=== PATIENT | female | born 1945 | race Caucasian/White ===

== ENCOUNTER 2017-10-13 07:41 | Emergency (ER) | END 2017-10-13 10:10 | disposition home or self-care (01) ==

== ENCOUNTER 2018-04-07 04:44 | Emergency (ER) | payer MEDICARE, OTHER ==
[~2018-04-07] VITALS: Wt 94.3 kg
[~2018-04-07 04:44] MED LIST: MECL12.574 PO; METF-849 PO; ONDA4TAB14 PO; VALS320T2 PO
[2018-04-07] MEDS: METOPROLOL 5 MG INJ IV ONE ×2 (06:12→06:35)
[2018-04-07] MEDS ORDERED: ONDANSETRON 4 MG INJ IV STA (06:17)
[2018-04-07] MEDS ORDERED: DIPHENHYDRAMINE 50 MG INJ IV STA (06:17)
[2018-04-07] MEDS ORDERED: KETOROLAC 30 MG INJ IV STA (06:17)
[2018-04-07] MEDS ORDERED: METOCLOPRAMIDE 10 MG INJ IV STA (06:17)
--- NOTE | 2018-04-07 07:56 | ERD ---
ER Documentation Chief Complaint Chief Complaint Lt side facial numbness and ear pain. last known well 04/06/18 in AM +vomit HPI This is a 72-year-old female presents with a gradual onset headache, over the left side, she had a similar headache yesterday, and saw her primary care doctor, who ordered labs and advised her to follow-up. The patient presents today with a recurrent headache, To me she actually denies no numbness or weakness, she said the pain is on her left side, There are no alleviating or aggravating factors, she denies chest pain or shortness of breath, she describes the pain as sharp. She has a history of hypertension she is on valsartan ROS All systems reviewed and are negative except as per history of present illness. Medications Home Meds Reported Medications Metformin* (Glucophage*) 500 Mg Tab, 500 MG PO BID WITH MEALS, #90 TAB 10/13/17 Valsartan* (Diovan*) 320 Mg Tablet, 320 MG PO DAILY, TAB 10/13/17 Discontinued Scripts Ondansetron (Ondansetron Odt) 4 Mg Tab.rapdis, 4 MG PO Q6H PRN for NAUSEA AND/OR VOMITING, #10 TAB Prov:OLIVER PAEZ MD 10/13/17 Meclizine Hcl* (Antivert*) 12.5 Mg Tab, 12.5 MG PO Q6H PRN for DIZZINESS, #20 TAB Prov:OLIVER PAEZ MD 10/13/17 Allergies Allergies: Coded Allergies: No Known Allergies (Verified Allergy, Mild, 01/13/12) PMhx/Soc History of Surgery: Yes (CHOLECYSTECTOMY 10 YRS AGO, NATURAL X4) Anesthesia Reaction: No Hx Neurological Disorder: Yes (VERTIGO) Hx Respiratory Disorders: No Hx Cardiac Disorders: Yes (HTN) Hx Psychiatric Problems: No Hx Miscellaneous Medical Probl: Yes (DM) Hx Alcohol Use: No Hx Substance Use: No Hx Tobacco Use: No Smoking Status: Never smoker Physical Exam Vitals Vital Signs Date Temp Pulse Resp B/P (MAP) Pulse Ox O2 O2 Flow FiO2 Time Delivery Rate 04/07/18 Nasal 2 07:26 Cannula 04/07/18 70 16 174/75 100 Room Air 06:49 (108) 04/07/18 98.5 80 20 248/112 99 04:46 (157) Physical Exam Const: Asleep, easily awakened Head: Atraumatic Eyes: Normal Conjunctiva ENT: Normal External Ears, Nose and Mouth, no temporal tenderness Neck: Full range of motion. No meningismus. Resp: Clear to auscultation bilaterally Cardio: Regular rate and rhythm, no murmurs Abd: Soft, non tender, non distended. Normal bowel sounds Skin: No petechiae or rashes Back: No midline or flank tenderness Ext: No cyanosis, or edema Neur: Alert and oriented x4, cranial nerves II through XII intact, no cerebellar ataxia, no pronator drift Psych: Normal Mood and Affect Result Diagram: 04/07/18 0540 04/07/18 0540 Results 24 hrs Laboratory Tests Test 04/07/18 05:40 04/07/18 05:41 04/07/18 06:27 White Blood Count 10.5 10^3/ul Red Blood Count 4.15 10^6/ul Hemoglobin 12.5 g/dl Hematocrit 38.8 % Mean Corpuscular Volume 93.5 fl Mean Corpuscular Hemoglobin 30.1 pg Mean Corpuscular Hemoglobin Concent 32.2 g/dl Red Cell Distribution Width 12.7 % Platelet Count 192 10^3/UL Mean Platelet Volume 12.2 fl Immature Granulocytes % 0.300 % Neutrophils % 79.7 % Lymphocytes % 13.5 % Monocytes % 5.3 % Eosinophils % 0.9 % Basophils % 0.3 % Nucleated Red Blood Cells % 0.0 /100WBC Immature Granulocytes # 0.030 10^3/ul Neutrophils # 8.4 10^3/ul Lymphocytes # 1.4 10^3/ul Monocytes # 0.6 10^3/ul Eosinophils # 0.1 10^3/ul Basophils # 0.0 10^3/ul Nucleated Red Blood Cells # 0.0 10^3/ul Sodium Level 139 mmol/L Potassium Level 4.7 mmol/L Chloride Level 103 mmol/L Carbon Dioxide Level 27 mmol/L Anion Gap 9 Blood Urea Nitrogen 20 mg/dl Creatinine 0.78 mg/dl Est Glomerular Filtrat Rate mL/min mL/min Glucose Level 241 mg/dl Calcium Level 9.8 mg/dl Total Bilirubin 0.2 mg/dl Direct Bilirubin 0.00 mg/dl Indirect Bilirubin 0.2 mg/dl Aspartate Amino Transf (AST/SGOT) 22 IU/L Alanine Aminotransferase (ALT/SGPT) 14 IU/L Alkaline Phosphatase 108 IU/L Troponin I < 0.012 ng/ml Total Protein 7.9 g/dl Albumin 4.1 g/dl Globulin 3.80 g/dl Albumin/Globulin Ratio 1.07 Triglycerides Level 219 mg/dl Cholesterol Level 255 mg/dl LDL Cholesterol, Calculated 170 mg/dl HDL Cholesterol 41 mg/dl Cholesterol/HDL Ratio 6.2 RATIO Bedside Glucose 222 mg/dL Prothrombin Time 12.4 Sec Prothrombin Time Ratio 1.0 INR International Normalized Ratio 0.91 Activated Partial Thromboplast Time 30.7 Sec Hemoglobin A1c 8.4 % Current Medications Medications Dose Sig/Delroy Start Time Status Last (Trade) Ordered Route PRN Stop Time Admin Dose Reason Admin Metoprolol 5 mg ONCE ONCE 04/07/18 DC 04/07/18 Tartrate IV 05:30 04/07/18 06:35 (Lopressor) 05:31 10 mg ONCE STAT 04/07/18 DC 04/07/18 Metoclopramid IV 06:17 04/07/18 07:18 e HCl 06:19 (Reglan) Ondansetron 4 mg ONCE STAT 04/07/18 DC HCl (Zofran IV 06:17 04/07/18 Inj) 06:19 Ketorolac 15 mg ONCE STAT 04/07/18 DC 04/07/18 Tromethamine IV 06:17 04/07/18 07:19 (Toradol) 06:19 25 mg ONCE STAT 04/07/18 DC 04/07/18 Diphenhydrami IV 06:17 04/07/18 07:18 ne HCl 06:19 (Benadryl) Procedures/MDM This 72-year-old female presents for evaluation of headache. She initially presented hypertensive, she was not encephalopathic or confused, she had a CT brain given her age, which was negative for acute intracranial findings. She actually endorses no numbness at all to me, her headache was mainly localized to her left side, with no temporal tenderness. She was given a headache cocktail with significant improvement in her symptoms, at this point I do not suspect subarachnoid hemorrhage, do not suspect stroke, I do not suspect temporal arteritis, I discussed findings with the patient and her daughter, the patient will see her primary care doctor today, at this point she is stable for discharge home. At discharge she was in no acute distress and all questions were answered. EKG: Rate/Rhythm: Normal Sinus Rhythm QRS, ST, T-waves: No changes consistent w/ acute ischemia Impression: No evidence of ischemia or arrhythmia Departure Diagnosis: Primary Impression: Hypertension Hypertension type: essential hypertension Qualified Codes: I10 - Essential (primary) hypertension Additional Impression: Headache Headache type: unspecified Headache chronicity pattern: acute headache Intractability: not intractable Qualified Codes: R51 - Headache Condition: Stable CRISS NELSON MD Apr 07, 2018 07:55
[2018-04-07 08:27] VITALS: BP 173/77; PULSE 68; RESP 20
[2018-04-08] MEDS ORDERED: CLON-379 PO (22:36)
== END 2018-04-07 08:30 | disposition home or self-care (01) ==
LOC: E/R 04:44
DX: I10 Essential (primary) hypertension (principal); R51 Headache; E11.9 Type 2 diabetes mellitus without complications; Z79.84 Long term (current) use of oral hypoglycemic drugs
CPT/HCPCS: 36415; 70450; 71045; 80053; 80061; 82962; 83036; 84484; 85025; 85610; 85730; 93005; 96374; 96375; 96376; 99285; J1200; J1885; J2765

== ENCOUNTER 2018-04-08 20:44 | Emergency (ER) | payer MEDICARE, OTHER ==
[~2018-04-08] VITALS: Ht 160 cm; Wt 93.6 kg
[~2018-04-08 20:44] MED LIST changes: -MECL12.574 PO; -ONDA4TAB14 PO
[2018-04-08 20:59] VITALS: Ht 160 cm; Wt 93.6 kg
[2018-04-08] MEDS ORDERED: DIPHENHYDRAMINE 50 MG INJ IV STA (21:30)
[2018-04-08] MEDS ORDERED: METOCLOPRAMIDE 10 MG INJ IV STA (21:30)
[2018-04-08] MEDS ORDERED: hydrALAzine 20 MG INJ IV ONE (22:00)
--- NOTE | 2018-04-08 22:35 | ERD ---
ER Documentation Chief Complaint Chief Complaint L sided BARLOW, no Neuro deficit, dizzy, too HPI This is a 72-year-old female with a history of hypertension and hyperlipidemia, diabetes presents to the emergency room for evaluation of a headache and elevated blood pressure. The patient was seen here in the emergency room yesterday and was given medications in the ER and discharged home. She states that she was feeling better at home however tonight she felt her headache again and came to the ER. Triage was patient's blood pressure was greater than 230 systolic. The patient is not combining of any blurred vision or chest pain or shortness of breath at this time. She localized the pain to the left side of her head and describes as a throbbing pain not associated with any nausea or vomiting. The patient denies any numbness or tingling in the extremities and she is here with her daughter who denies any slurred speech and states the patient is at her baseline mental status ROS All systems reviewed and are negative except as per history of present illness. Medications Home Meds Reported Medications Metformin* (Glucophage*) 500 Mg Tab, 500 MG PO BID WITH MEALS, #90 TAB 10/13/17 Valsartan* (Diovan*) 320 Mg Tablet, 320 MG PO DAILY, TAB 10/13/17 Discontinued Scripts Ondansetron (Ondansetron Odt) 4 Mg Tab.rapdis, 4 MG PO Q6H PRN for NAUSEA AND/OR VOMITING, #10 TAB Prov:OLIVER PAEZ MD 10/13/17 Meclizine Hcl* (Antivert*) 12.5 Mg Tab, 12.5 MG PO Q6H PRN for DIZZINESS, #20 TAB Prov:OLIVER PAEZ MD 10/13/17 Allergies Allergies: Coded Allergies: No Known Allergies (Verified Allergy, Mild, 01/13/12) PMhx/Soc History of Surgery: Yes (CHOLECYSTECTOMY 10 YRS AGO, NATURAL X4) Anesthesia Reaction: No Hx Neurological Disorder: Yes (VERTIGO) Hx Respiratory Disorders: No Hx Cardiac Disorders: Yes (HTN) Hx Psychiatric Problems: No Hx Miscellaneous Medical Probl: Yes (DM) Hx Alcohol Use: No Hx Substance Use: No Hx Tobacco Use: No Smoking Status: Never smoker Physical Exam Vitals Vital Signs Date Temp Pulse Resp B/P (MAP) Pulse Ox O2 O2 Flow FiO2 Time Delivery Rate 04/08/18 98.4 79 18 224/98 98 20:59 (140) Physical Exam INITIAL VITAL SIGNS: Reviewed by me GENERAL: The patient is well developed and appropriate for usual state of health in no apparent distress HEENT: Pupils equal, round, and reactive to light. EOMI. There is no scleral icterus. NECK: C-spine is soft and supple, there is no meningismus. There is no cervical lymphadenopathy. LUNGS: Clear to auscultation bilaterally. There are no rales, wheezes or rhonchi. HEART: Regular rate and rhythm, no murmurs, clicks, rubs or gallops. ABDOMEN: Soft, non-tender, non-distended. There are bowel sounds in all four quadrants. No rebound or guarding. EXTREMITIES: There is no peripheral cyanosis or edema. No focal swelling or erythema. NEUROLOGICAL: The patient moves all four extremities with 5/5 strength. Cranial nerves II - XII are intact. Normal gait. Alert and oriented SKIN: There is no apparent rash or petechiae. HEME/LYMPHATIC: There is no evidence of excessive bruising or lymphedema. PSYCHIATRIC: The patient does not appear anxious or depressed. Result Diagram: 04/08/18213704/08/182137 Results 24 hrs Laboratory Tests Test 04/08/18 21:38 White Blood Count 10.4 10^3/ul Red Blood Count 4.05 10^6/ul Hemoglobin 12.0 g/dl Hematocrit 37.6 % Mean Corpuscular Volume 92.8 fl Mean Corpuscular Hemoglobin 29.6 pg Mean Corpuscular Hemoglobin Concent 31.9 g/dl Red Cell Distribution Width 12.6 % Platelet Count 208 10^3/UL Mean Platelet Volume 11.5 fl Immature Granulocytes % 0.400 % Neutrophils % 68.3 % Lymphocytes % 19.8 % Monocytes % 9.5 % Eosinophils % 1.7 % Basophils % 0.3 % Nucleated Red Blood Cells % 0.0 /100WBC Immature Granulocytes # 0.040 10^3/ul Neutrophils # 7.1 10^3/ul Lymphocytes # 2.1 10^3/ul Monocytes # 1.0 10^3/ul Eosinophils # 0.2 10^3/ul Basophils # 0.0 10^3/ul Nucleated Red Blood Cells # 0.0 10^3/ul Prothrombin Time 12.2 Sec Prothrombin Time Ratio 1.0 INR International Normalized Ratio 0.89 Activated Partial Thromboplast Time 34.8 Sec Sodium Level 139 mmol/L Potassium Level 4.2 mmol/L Chloride Level 103 mmol/L Carbon Dioxide Level 26 mmol/L Anion Gap 10 Blood Urea Nitrogen 22 mg/dl Creatinine 0.86 mg/dl Est Glomerular Filtrat Rate mL/min mL/min Glucose Level 229 mg/dl Calcium Level 9.8 mg/dl Current Medications Medications Dose Sig/Delroy Start Time Status Last (Trade) Ordered Route PRN Stop Time Admin Dose Reason Admin 10 mg ONCE STAT 04/08/18 DC 04/08/18 Metoclopramid IV 21:30 04/08/18 21:52 e HCl 21:31 (Reglan) 25 mg ONCE STAT 04/08/18 DC 04/08/18 Diphenhydrami IV 21:30 04/08/18 21:52 ne HCl 21:31 (Benadryl) Hydralazine 10 mg ONCE ONCE 04/08/18 DC 04/08/18 HCl IV 22:00 04/08/18 21:53 (Apresoline) 22:01 Procedures/MDM EKG: Rate/Rhythm: [Normal Sinus Rhythm] QRS, ST, T-waves: [No changes consistent w/ acute ischemia] Impression: [No evidence of ischemia or arrhythmia] This 72-year-old female presents to the ER for evaluation of a headache. When I evaluated this patient the patient had a GCS of 15, she had no focal neurological deficits. However her blood pressure was elevated with a systolic blood pressure greater than 230 on the monitor. She was afebrile and she was not tachycardic. She had no meningeal signs. The patient was given hydralazine and a migraine cocktail. On my reevaluation the patient's blood pressure is 174/64. She denies any headache at this time and states she is feeling much better. The patient was seen here in the emergency room yesterday and did have a CT of the brain which showed no acute intracranial pathology. I will defer CT at this time given her negative CT yesterday. The patient is likely suffering from a headache due to uncontrolled hypertension. The patient does have a scheduled appointment with her primary care physician on April 10. She will be discharged home with a prescription for clonidine to take if her blood pressure does increase with symptoms. She will be discharged home with 2 tabs of 0.1 mg. The patient does feel comfortable with our plan. I advised her that if her blood pressure would continue to be higher if she were to have any further symptoms she needs to return immediately to the emergency room for admission and she verbalized understanding. Departure Diagnosis: Primary Impression: Uncontrolled hypertension Additional Impression: Diabetes mellitus Condition: Stable AIME MATHIAS DO Apr 08, 2018 22:35
[2018-04-08] MEDS ORDERED: CLON-379 PO (22:36)
[2018-04-08 23:17] VITALS: BP 155/73; PULSE 87; RESP 22
[2018-04-11] MEDS ORDERED: LOSA100T8 PO (09:32)
== END 2018-04-08 23:19 | disposition home or self-care (01) ==
LOC: E/R 20:44
DX: I10 Essential (primary) hypertension (principal); E11.9 Type 2 diabetes mellitus without complications; Z79.84 Long term (current) use of oral hypoglycemic drugs
CPT/HCPCS: 80048; 85025; 85610; 85730; J0360; J1200; J2765; 36415; 93005; 96374; 96375

== ENCOUNTER 2018-04-09 15:58 | Inpatient (IN) | payer MEDICARE, OTHER ==
[~2018-04-09] VITALS: Ht 167.6 cm; Wt 91.1 kg
[~2018-04-09 15:58] MED LIST changes: +CLON-379 PO
[2018-04-09] MEDS ORDERED: LABETALOL HCL 20MG INJ IV ONE (20:00)
--- NOTE | 2018-04-09 21:12 | ERD ---
ER Documentation Chief Complaint Chief Complaint BIB FAMILY FOR BARLOW AND HTN. SEEN PREVIOUSLY FOR SAME HPI Patient is a 72-year-old female with hypertension, diabetes, and high cholesterol who presents with high blood pressure. She has had high blood pressure with a systolic of 240 at home today. It started 1 week ago. She saw her primary doctor on Wednesday. She has left-sided facial pain. Symptoms come and go. This is her third visit to the ER since April 07. She does take her blood pressure medications. Last night in the emergency department she was given a prescription for clonidine which she did try today. However her blood pressure has bounced back in is elevated again. She has generalized weakness and nausea but no focal weakness. Upon review of old medical records this is the patient's ninth visit to the ER since 2010. Her primary doctor is Dr. Martinez. ROS All systems reviewed and are negative except as per history of present illness. Medications Home Meds Active Scripts Clonidine Hcl* (Clonidine Hcl*) 0.1 Mg Tab, 0.1 MG PO BID, #2 TAB Prov:AIME MATHIAS DO 04/08/18 Reported Medications Metformin* (Glucophage*) 500 Mg Tab, 500 MG PO BID WITH MEALS, #90 TAB 10/13/17 Valsartan* (Diovan*) 320 Mg Tablet, 320 MG PO DAILY, TAB 10/13/17 Discontinued Scripts Ondansetron (Ondansetron Odt) 4 Mg Tab.rapdis, 4 MG PO Q6H PRN for NAUSEA AND/OR VOMITING, #10 TAB Prov:OLIVER PAEZ MD 10/13/17 Meclizine Hcl* (Antivert*) 12.5 Mg Tab, 12.5 MG PO Q6H PRN for DIZZINESS, #20 TAB Prov:OLIVER PAEZ MD 10/13/17 Allergies Allergies: Coded Allergies: No Known Allergies (Verified Allergy, Mild, 04/09/18) PMhx/Soc History of Surgery: Yes (CHOLECYSTECTOMY 10 YRS AGO, NATURAL X4) Anesthesia Reaction: No Hx Neurological Disorder: Yes (VERTIGO) Hx Respiratory Disorders: No Hx Cardiac Disorders: Yes (HTN) Hx Psychiatric Problems: No Hx Miscellaneous Medical Probl: Yes (DM) Hx Alcohol Use: No Hx Substance Use: No Hx Tobacco Use: No Smoking Status: Never smoker FmHx Family History: No diabetes Physical Exam Vitals Vital Signs Date Temp Pulse Resp B/P (MAP) Pulse Ox O2 O2 Flow FiO2 Time Delivery Rate 04/09/18 98.7 67 16 141/72 98 Room Air 20:21 (95) 04/09/18 98.7 73 16 192/80 99 16:03 (117) Physical Exam Const: No acute distress Head: Atraumatic Eyes: Normal Conjunctiva ENT: Normal External Ears, Nose and Mouth. Neck: Full range of motion. No meningismus. Resp: Clear to auscultation bilaterally Cardio: Regular rate and rhythm, no murmurs Abd: Soft, non tender, non distended. Normal bowel sounds Skin: No petechiae or rashes Back: No midline or flank tenderness Ext: No cyanosis, or edema Neur: Awake and alert, cranial nerves II through XII intact, strength is 5 out of 5 in all 4 extremities Psych: Normal Mood and Affect Result Diagram: 04/09/18202504/09/182025 Results 24 hrs Laboratory Tests Test 04/09/18 20:26 White Blood Count 9.9 10^3/ul Red Blood Count 4.45 10^6/ul Hemoglobin 13.3 g/dl Hematocrit 40.8 % Mean Corpuscular Volume 91.7 fl Mean Corpuscular Hemoglobin 29.9 pg Mean Corpuscular Hemoglobin Concent 32.6 g/dl Red Cell Distribution Width 12.7 % Platelet Count 200 10^3/UL Mean Platelet Volume 11.1 fl Immature Granulocytes % 0.200 % Neutrophils % 65.8 % Lymphocytes % 23.9 % Monocytes % 8.6 % Eosinophils % 1.1 % Basophils % 0.4 % Nucleated Red Blood Cells % 0.0 /100WBC Immature Granulocytes # 0.020 10^3/ul Neutrophils # 6.5 10^3/ul Lymphocytes # 2.4 10^3/ul Monocytes # 0.9 10^3/ul Eosinophils # 0.1 10^3/ul Basophils # 0.0 10^3/ul Nucleated Red Blood Cells # 0.0 10^3/ul Sodium Level 136 mmol/L Potassium Level 4.0 mmol/L Chloride Level 101 mmol/L Carbon Dioxide Level 23 mmol/L Anion Gap 12 Blood Urea Nitrogen 19 mg/dl Creatinine 0.84 mg/dl Est Glomerular Filtrat Rate mL/min mL/min Glucose Level 148 mg/dl Calcium Level 10.5 mg/dl Troponin I < 0.012 ng/ml Current Medications Medications Dose Sig/Delroy Start Time Status Last (Trade) Ordered Route PRN Stop Time Admin Dose Reason Admin Labetalol 20 mg ONCE ONCE 04/09/18 DC HCl IV 20:00 04/09/18 (Labetalol) 20:02 Ondansetron 4 mg ER BRIDGE 04/09/18 HCl (Zofran PRN IV 21:30 04/10/18 Inj) NAUSEA AND/OR 21:29 VOMITING 650 mg ER BRIDGE 04/09/18 Acetaminophen PRN PO MILD 21:30 04/10/18 (Tylenol PAIN(1-3)OR 21:29 Tab) ELEVATED TEMP Procedures/MDM EKG read by me: Rate/Rhythm: Regular rate and rhythm at a normal rate Intervals: Normal Impression: No evidence of ischemia or arrhythmia Patient is a 72-year-old female with hypertension and diabetes who presents with hypertensive urgency. She has had persistently elevated hypertension for the past 1 week and this is her third visit to the emergency department for hypertension over the past 3 days. I do believe that she will require admission for blood pressure control and further treatment and evaluation. I spoke with Dr. Azevedo from the panel team to admission to a telemetry bed. I doubt acute coronary syndrome or stroke. Departure Diagnosis: Primary Impression: Hypertensive urgency Additional Impression: Headache Headache type: unspecified Headache chronicity pattern: acute headache Intractability: not intractable Qualified Codes: R51 - Headache Condition: OLIVER Greer MD Apr 09, 2018 21:12
[2018-04-09] MEDS ORDERED: ONDANSETRON 4 MG INJ IV PRN (21:30)
[2018-04-09] MEDS ORDERED: ACETAMINOPHEN 325 MG TAB PO PRN ×2 (21:30→23:30)
[2018-04-09 22:15] VITALS: PULSE 77
[2018-04-09 22:51] VITALS: Ht 167.6 cm; Wt 91.1 kg
[2018-04-09 23:29] VITALS: BP 135/93; PULSE 66; RESP 17
[2018-04-09] MEDS ORDERED: HYDROCODONE/APAP (5/325) TAB PO PRN ×2 (23:30)
[2018-04-09] MEDS ORDERED: GLUCOSE GEL 15 GRAM TUBE BUCCAL PRN (23:45)
[2018-04-09] MEDS ORDERED: GLUCAGON 1 MG INJ IM PRN (23:45)
[2018-04-09] MEDS ORDERED: DEXTROSE 50% 50 ML SYRINGE IV PRN ×2 (23:45)
[2018-04-09] MEDS ORDERED: GLUCOSE GEL 15 GRAM TUBE PO PRN ×2 (23:45)
--- NOTE | 2018-04-09 23:55 | HP ---
Date/Time of Note Date/Time of Note DATE: 04/09/18 TIME: 23:55 Assessment/Plan VTE Prophylaxis Pharmacological prophylaxis: heparin Lines/Catheters IV Catheter Type (from Nrs): Saline Lock Assessment/Plan Assessment/Plan 1. Hypertensive urgency: BP better controlled -Continue home meds. Adjust antihypertensives as needed -Of note, patient had a head CT on 04/07/18, which was negative for acute findings 2. Diabetes: Continue home meds. Adjust as needed 3. Continue statin 4. GERD and gastritis with erosion: PPI Result Diagram: 04/09/18202504/09/182025 Results 24hrs Laboratory Tests Test 04/09/18 20:26 04/09/18 22:33 White Blood Count 9.9 Red Blood Count 4.45 Hemoglobin 13.3 Hematocrit 40.8 Mean Corpuscular Volume 91.7 Mean Corpuscular Hemoglobin 29.9 Mean Corpuscular Hemoglobin Concent 32.6 Red Cell Distribution Width 12.7 Platelet Count 200 Mean Platelet Volume 11.1 H Immature Granulocytes % 0.200 Neutrophils % 65.8 Lymphocytes % 23.9 Monocytes % 8.6 Eosinophils % 1.1 Basophils % 0.4 Nucleated Red Blood Cells % 0.0 Immature Granulocytes # 0.020 Neutrophils # 6.5 Lymphocytes # 2.4 Monocytes # 0.9 Eosinophils # 0.1 Basophils # 0.0 Nucleated Red Blood Cells # 0.0 Sodium Level 136 Potassium Level 4.0 Chloride Level 101 Carbon Dioxide Level 23 Anion Gap 12 Blood Urea Nitrogen 19 Creatinine 0.84 Est Glomerular Filtrat Rate mL/min Glucose Level 148 # Calcium Level 10.5 H Troponin I < 0.012 Bedside Glucose 133 HPI/ROS Admit Date/Time Admit Date/Time Apr 09, 2018 at 21:03 Hx of Present Illness This is a 72-year-old female with a history of hypertension, diabetes, dyslipidemia, GERD and gastritis with erosion who presented to ER complaining of elevated blood pressure and dizziness. He said her systolic blood pressure has been as high as 240. This is patient's third ER visit in the past 3 days, related to elevated blood pressure. She had a head CT on 04/07/18, which was negative for acute findings. She said she has been compliant with her medications. When she presented to ER, blood pressure was 192/80. Currently better co ntrolled. PMH/Family/Social Past Medical History Medications Current Medications Ondansetron HCl (Zofran Inj) 4 mg ER BRIDGE PRN IV NAUSEA AND/OR VOMITING; Start 04/09/18 at 21:30; Stop 04/10/18 at 21:29 Acetaminophen (Tylenol Tab) 650 mg ER BRIDGE PRN PO MILD PAIN(1-3)OR ELEVATED TEMP; Start 04/09/18 at 21:30; Stop 04/10/18 at 21:29 Diagnostic Test (Pha) (Accu-Chek) 1 ea 02 XX ; Start 04/10/18 at 02:00 Insulin Aspart (Novolog Insulin Pen) NOVOLOG *MILD* ALGORITHM WITH MEALS BEDTIME SC ; Start 04/10/18 at 08:00 Acetaminophen/ Hydrocodone Bitart ([place] (5/325)) 1 tab Q4H PRN PO MODERATE PAIN LEVEL 4-6; Start 04/09/18 at 23:30 Acetaminophen/ Hydrocodone Bitart ([place] (5/325)) 2 tab Q4H PRN PO PAIN LEVEL 7-10; Start 04/09/18 at 23:30 Acetaminophen (Tylenol Tab) 650 mg Q6H PRN PO MILD PAIN(1-3)OR ELEVATED TEMP; Start 04/09/18 at 23:30 Miscellaneous Information 1 ea NOTE XX ; Start 04/09/18 at 23:45 Glucose (Glutose) 15 gm Q15M PRN PO DECREASED GLUCOSE; Start 04/09/18 at 23:45 Glucose (Glutose) 22.5 gm Q15M PRN PO DECREASED GLUCOSE; Start 04/09/18 at 23:45 Dextrose (D50w Syringe) 25 ml Q15M PRN IV DECREASED GLUCOSE; Start 04/09/18 at 23:45 Dextrose (D50w Syringe) 50 ml Q15M PRN IV DECREASED GLUCOSE; Start 04/09/18 at 23:45 Glucagon (Glucagen) 1 mg Q15M PRN IM DECREASED GLUCOSE; Start 04/09/18 at 23:45 Glucose (Glutose) 15 gm Q15M PRN BUCCAL DECREASED GLUCOSE; Start 04/09/18 at 23:45 Coded Allergies: No Known Allergies (Verified Allergy, Mild, 04/09/18) Social History Smoking Status: Never smoker Exam/Review of Systems Vital Signs Vitals Vital Signs Date Temp Pulse Resp B/P (MAP) Pulse Ox O2 O2 Flow FiO2 Time Delivery Rate 04/09/18 98.1 66 17 135/93 95 23:29 (107) 04/09/18 Room Air 21:30 Exam Exam Constitutional: other (no acute distress) Head: normocephalic Respiratory: other (slight decreased at bases) Cardiovascular: regular rate and rhythm Gastrointestinal: soft Extremities: normal pulses PMH/Family/Social Past Medical History Medical History: other (see hpi) Coded Allergies: No Known Drug Allergy (Verified Allergy, Unknown, 11/21/15) Past Surgical History Past Surgical Hx: other (see hpi) Family History Significant Family History: no pertinent family hx Social History Alcohol Use: other Smoking Status: Unknown if ever smoked Drug Use: other GALDINO VAZQUEZ MD Apr 09, 2018 23:55
[2018-04-10] VITALS (12 sets, daily range): BP systolic 107–138; BP diastolic 56–81; PULSE 63–81; RESP 16–18
[2018-04-10] MEDS ORDERED: NACL 0.9% 3 ML SYG IV SCH (00:30)
[2018-04-10] MEDS ORDERED: ALBUTEROL/IPRATROPIUM (NEB) 3 ML AMP HHN PRN (00:30)
[2018-04-10] MEDS ORDERED: ONDANSETRON 4 MG INJ IV PRN (00:30)
[2018-04-10] MEDS: ACCU-CHEK XX SCH (01:59)
[2018-04-10] MEDS: INSULIN ASPART [NOVOLOG] 3 ML PEN SC SCH ×4 (07:44→20:11)
[2018-04-10] MEDS ORDERED: metFORMIN 500 MG TAB PO SCH (08:00)
[2018-04-10] MEDS: FAMOTIDINE 20 MG TAB PO SCH ×2 (08:05→20:10)
[2018-04-10] MEDS: LOSARTAN 50 MG TAB PO SCH (08:06)
--- NOTE | 2018-04-10 10:04 | CONDCODE ---
I personally scribed for GALDINO VAZQUEZ MD ([facility]) on 04/10/18 at 10:04. Electronically submitted by Roselyn Barrios ([email or web address]). GALDINO VAZQUEZ MD Apr 10, 2018 10:04
--- NOTE | 2018-04-10 11:40 | PN ---
Date/Time of Note Date/Time of Note DATE: 04/10/18 TIME: 11:38 Assessment/Plan VTE Prophylaxis Risk score (from Ns)>0 risk: 4 SCD applied (from Ns): Yes SCD contraindicated: low risk/ambulating Pharmacological prophylaxis: NA/contraindicated Pharm contraindication: low risk/ambulating Lines/Catheters [facility]from [facility] Saline Lock Assessment/Plan Hospital Course SUBJECTIVE: Lying in bed comfortably. No acute distress. OBJECTIVE: Vital signs-see below PHYSICAL EXAM: Constitutional: Well-developed, adequately built, lying in bed comfortably. Psych: nl mood/affect, no complaints Head: atraumatic, normocephalic Eyes: nl conjunctiva, nl sclera ENMT: mucosa pink and moist, nl external ears & nose Neck: non-tender, supple Respiratory: clear to auscultation, normal air movement Cardiovascular: nl pulses, regular rate and rhythm Gastrointestinal: non-tender, soft, bowel sounds active in all 4 quadrants. Musculoskeletal/extremities: nl extremities to inspection, motor strength equal bilaterally, no focal deficit. Normal pulses,no cyanosis, no edema. Neurological: Alert oriented 3,nl speech, nl strength Skin: nl turgor ASSESSMENT/PLAN: 72-year-old female with a history of hypertension, admitted for dizziness and SBP above 200s. 1. Uncontrolled hypertension. -Currently stable. Continue losartan and clonidine. 2. Type 2 diabetes. -A1c 8.4. Stable glycemic trends. Hold metformin for now and will treat with insulin in-house. 3. Hypercholesterolemia. -We will start patient on statin. 4. Obesity. -Weight reduction advised. 5. Dizziness likely secondary to hypertensive episodes. -Pending 2D echocardiogram. I will also obtain a carotid ultrasound. -Symptoms resolved as blood pressure is stabilized. DVT prophylaxis: SCDs PUD prophylaxis: Not indicated CODE STATUS: Full code Diet: Carbohydrate controlled/low-cholesterol low-fat diet. Disposition: Continue current medical management. Await for ultrasound/echo studies. Monitor blood pressure closely and discharge planning in a.m. if blood pressure remained stable. Patient was seen in collaboration with Dr. Yip. Result Diagram: 04/10/18 0528 04/10/18 0528 Results 24hrs Laboratory Tests Test 04/09/18 20:26 04/09/18 22:33 04/10/18 05:28 04/10/18 07:40 White Blood Count 9.9 9.4 Red Blood Count 4.45 4.36 Hemoglobin 13.3 13.0 Hematocrit 40.8 39.8 Mean Corpuscular Volume 91.7 91.3 Mean Corpuscular 29.9 29.8 Hemoglobin Mean Corpuscular 32.6 32.7 Hemoglobin Concent Red Cell Distribution 12.7 12.5 Width Platelet Count 200 202 Mean Platelet Volume 11.1 H 11.7 H Immature Granulocytes % 0.200 0.300 Neutrophils % 65.8 70.1 Lymphocytes % 23.9 19.0 Monocytes % 8.6 9.1 Eosinophils % 1.1 1.1 Basophils % 0.4 0.4 Nucleated Red Blood 0.0 0.0 Cells % Immature Granulocytes # 0.020 0.030 Neutrophils # 6.5 6.6 Lymphocytes # 2.4 1.8 Monocytes # 0.9 0.9 Eosinophils # 0.1 0.1 Basophils # 0.0 0.0 Nucleated Red Blood 0.0 0.0 Cells # Sodium Level 136 138 Potassium Level 4.0 4.4 Chloride Level 101 99 Carbon Dioxide Level 23 27 Anion Gap 12 12 Blood Urea Nitrogen 19 21 H Creatinine 0.84 0.83 Est Glomerular Filtrat Rate mL/min Glucose Level 148 # 187 Calcium Level 10.5 H 10.1 Troponin I < 0.012 Bedside Glucose 133 163 Hemoglobin A1c 8.4 H Total Bilirubin 0.4 Direct Bilirubin 0.00 Indirect Bilirubin 0.4 Aspartate Amino 15 Transf (AST/SGOT) Alanine 16 Aminotransferase (ALT/SG PT) Alkaline Phosphatase 90 Total Protein 7.5 Albumin 4.1 Globulin 3.40 H Albumin/Globulin Ratio 1.20 Triglycerides Level 254 H Cholesterol Level 262 H LDL Cholesterol, 171 Calculated HDL Cholesterol 40 Cholesterol/HDL Ratio 6.5 Thyroid Stimulating 3.740 Hormone (TSH) Exam/Review of Systems Vital Signs Vitals Vital Signs Date Temp Pulse Resp B/P (MAP) Pulse Ox O2 O2 Flow FiO2 Time Delivery Rate 04/10/18 76 08:00 04/10/18 97.9 16 138/62 92 07:50 (87) 04/09/18 Room Air 21:30 Intake and Output 04/09/18 04/09/18 04/10/18 1515:00 23:00 07:00 IntakeIntake Total 250 ml BalanceBalance 250 ml Medications Medications Current Medications Ondansetron HCl (Zofran Inj) 4 mg ER BRIDGE PRN IV NAUSEA AND/OR VOMITING; Start 04/09/18 at 21:30; Stop 04/10/18 at 21:29 Acetaminophen (Tylenol Tab) 650 mg ER BRIDGE PRN PO MILD PAIN(1-3)OR ELEVATED TEMP; Start 04/09/18 at 21:30; Stop 04/10/18 at 21:29 Diagnostic Test (Pha) (Accu-Chek) 1 ea 02 XX ; Start 04/10/18 at 02:00 Insulin Aspart (Novolog Insulin Pen) NOVOLOG *MILD* ALGORITHM WITH MEALS BEDTIME SC Last administered on 04/10/18at 07:44; Admin Dose 1 UNIT; Start 04/10/18 at 08:00 Acetaminophen/ Hydrocodone Bitart ([place] (5/325)) 1 tab Q4H PRN PO MODERATE PAIN LEVEL 4-6; Start 04/09/18 at 23:30 Acetaminophen/ Hydrocodone Bitart ([place] (5/325)) 2 tab Q4H PRN PO PAIN LEVEL 7-10; Start 04/09/18 at 23:30 Acetaminophen (Tylenol Tab) 650 mg Q6H PRN PO MILD PAIN(1-3)OR ELEVATED TEMP; Start 04/09/18 at 23:30 Miscellaneous Information 1 ea NOTE XX ; Start 04/09/18 at 23:45 Glucose (Glutose) 15 gm Q15M PRN PO DECREASED GLUCOSE; Start 04/09/18 at 23:45 Glucose (Glutose) 22.5 gm Q15M PRN PO DECREASED GLUCOSE; Start 04/09/18 at 23:45 Dextrose (D50w Syringe) 25 ml Q15M PRN IV DECREASED GLUCOSE; Start 04/09/18 at 23:45 Dextrose (D50w Syringe) 50 ml Q15M PRN IV DECREASED GLUCOSE; Start 04/09/18 at 23:45 Glucagon (Glucagen) 1 mg Q15M PRN IM DECREASED GLUCOSE; Start 04/09/18 at 23:45 Glucose (Glutose) 15 gm Q15M PRN BUCCAL DECREASED GLUCOSE; Start 04/09/18 at 23:45 Clonidine (Catapres) 0.1 mg BID PO Last administered on 04/10/18at 08:06; Admin Dose 0.1 MG; Start 04/10/18 at 09:00 Metformin HCl (Glucophage) 500 mg BID WITH MEALS PO Last administered on 04/10/18at 08:06; Admin Dose 500 MG; Start 04/10/18 at 08:00; Status Hold Losartan Potassium (Cozaar) 100 mg DAILY PO Last administered on 04/10/18at 08:06; Admin Dose 100 MG; Start 04/10/18 at 09:00 IV Flush (NS 3 ml) 3 ml PER PROTOCOL IV ; Start 04/10/18 at 00:30 Ondansetron HCl (Zofran Inj) 4 mg Q6H PRN IV NAUSEA AND/OR VOMITING; Start 04/10/18 at 00:30 Famotidine (Pepcid) 20 mg Q12 PO Last administered on 04/10/18at 08:05; Admin Dose 20 MG; Start 04/10/18 at 09:00 Albuterol/ Ipratropium (Duoneb) 3 ml Q2H RESP THERAPY PRN HHN SHORTNESS OF BREATH; Start 04/10/18 at 00:30 Insulin Glargine (Lantus) 14 units DAILY@0800 SC ; Start 04/20/18 at 20:00 GOLDEN RAHMAN NP Apr 10, 2018 11:40
[2018-04-10] MEDS: ATORVASTATIN 10 MG TAB PO SCH (20:10)
[2018-04-10] MEDS: INSULIN GLARGINE [LANTus] (100 UNITS/ML) SYG SC SCH (20:21)
[2018-04-11] VITALS (12 sets, daily range): BP systolic 100–126; BP diastolic 51–60; PULSE 57–70; RESP 18–20
[2018-04-11] MEDS: ACCU-CHEK XX SCH (01:59)
[2018-04-11] MEDS: LOSARTAN 50 MG TAB PO SCH (08:15)
[2018-04-11] MEDS: FAMOTIDINE 20 MG TAB PO SCH ×2 (08:16→20:05)
[2018-04-11] MEDS: INSULIN ASPART [NOVOLOG] 3 ML PEN SC SCH ×4 (08:41→20:23)
[2018-04-11] MEDS ORDERED: CLON-379 PO (09:32)
[2018-04-11] MEDS ORDERED: OMEG1CAP17 PO (09:32)
[2018-04-11] MEDS ORDERED: ATOR10TA65 PO (09:32)
[2018-04-11] MEDS ORDERED: LOSA100T15 PO (09:32)
[2018-04-11] MEDS ORDERED: ASPI-817 PO (09:35)
[2018-04-11] MEDS: FISH OIL 1,000 MG CAP PO SCH ×2 (10:13→20:05)
--- NOTE | 2018-04-11 11:11 | PDOCDIS ---
Discharge Instructions CONDITION [id number] Patient Condition: [id number] Stable HOME CARE INSTRUCTIONS: [id number] Your diet recommendation is: [id number] carbohydrate-controlled diet FOLLOW UP/APPOINTMENTS Follow-up Plan 1. Follow-up with primary care physician in 1 week-Repeat BUN/Creatinine in1 week GOLDEN RAHMAN NP Apr 11, 2018 11:11
--- NOTE | 2018-04-11 11:20 | DS ---
Date/Time of Note Date/Time of Note DATE: 04/11/18 TIME: 11:15 Discharge Summary Admission/Discharge Info Admit Date/Time Apr 09, 2018 at 21:03 Discharge Date/Time Discharge Diagnosis 1. Poorly controlled hypertension. Now stable. 2. Type 2 diabetes. 3. Hypercholesterolemia. 4. Obesity. 5. Dizziness likely secondary to hypertensive episodes. Resolved. 6. Possible DM neuropathy. Procedures 04/11/2018. Noncontrast CT head. IMPRESSION: No significant change. 1. No loss of bauman-white differentiation to suggest acute territorial infarction. Consider CTA of the head/neck or noncontrast MRI of the brain as clinically warranted. 2. No acute intracranial hemorrhage. 3. Mild to moderate chronic microvascular ischemic changes. 4. Partially empty sella turcica. Further findings as detailed above. 04/10/2018. Carotid duplex. IMPRESSION: 1. Less than 50% stenosis bilaterally in the internal carotid arteries. 2. Normal antegrade flow in the vertebral arteries bilaterally. Hospital Course 72-year-old female with a history of hypertension, admitted for dizziness and SBP above 200s. Most likely dizziness is caused by hypertensive emergency. Apparently, patient was on Diovan and clonidine at home for blood pressure management. Patient was started on losartan 100 mg daily. Patient complained of some numbness on her eye area for which she was ruled out for stroke. She did not have any vision changes. Most likely, patient has neuropathy with chronic hypertension and di abetes. At this time, neuropathy seems stable and would hold off to initiation of gabapentin unless symptoms persist for treatment w/gabapentin,this can be deferred for outpatient follow-up. Hospital stay was also noted for dizziness most likely caused by too tight control of blood pressure with clonidine. CT brain negative. Carotid ultrasound was negative for any significant stenosis. Dizziness resolved with gentle hydration. Patient was then continued on single regimen with losartan for blood pressure management. Patient was continued on insulin in-house for diabetes management and her blood pressure remained stable. She was also noted with hypercholesteremia for which statin therapy was initiated. She was counseled on weight reduction. At this time, patient is feeling back to her baseline. Vital signs and labs remained stable. 2D echocardiogram result pending which I will follow-up. No further inpatient workup indicated and patient can be discharged with outpatient follow-up. Patient is instructed to follow-up with PCP for monitoring renal function on losartan. Approximately 60 m spent on coordinating the discharge on this patient. Patient was seen in collaboration with Dr. Coppola. Home Meds Active Scripts Aspirin* (Aspirin* EC) 81 Mg Tablet.dr, 81 MG PO DAILY, #30 TAB Prov:RAHMAN,GOLDEN V. BUILDING SERVICES SUPERVISOR 04/11/18 Losartan Potassium* (Losartan Potassium*) 100 Mg Tablet, 100 MG PO DAILY, #30 TAB Prov:RAHMAN,GOLDEN V. BUILDING SERVICES SUPERVISOR 04/11/18 [place]-3 Fatty Acids/Fish Oil (Fish Oil 1,000 mg Softgel) 1 Each Capsule, 1 EACH PO BID, #60 CAP Prov:RAHMAN,GOLDEN V. BUILDING SERVICES SUPERVISOR 04/11/18 Atorvastatin (Atorvastatin) 10 Mg Tablet, 10 MG PO HS, #30 TAB Prov:RAHMAN,GOLDEN V. BUILDING SERVICES SUPERVISOR 04/11/18 Reported Medications Metformin* (Glucophage*) 500 Mg Tab, 500 MG PO BID WITH MEALS, #90 TAB 10/13/17 Discontinued Reported Medications Valsartan* (Diovan*) 320 Mg Tablet, 320 MG PO DAILY, TAB 10/13/17 Discontinued Scripts Clonidine Hcl* (Clonidine Hcl*) 0.1 Mg Tab, 0.1 MG PO BID, #2 TAB Prov:AIME MATHIAS DO 04/08/18 Ondansetron (Ondansetron Odt) 4 Mg Tab.rapdis, 4 MG PO Q6H PRN for NAUSEA AND/OR VOMITING, #10 TAB Prov:OLIVER PAEZ MD 10/13/17 Meclizine Hcl* (Antivert*) 12.5 Mg Tab, 12.5 MG PO Q6H PRN for DIZZINESS, #20 TAB Prov:OLIVER PAEZ MD 10/13/17 Follow-up Plan 1. Follow-up with primary care physician in 1 week. Primary Care Provider Not On Staff Doctor Pending Labs Laboratory Tests Test 04/10/18 12:06 04/10/18 17:17 04/10/18 20:09 04/11/18 01:59 Bedside 137 167 140 167 Glucose mg/dL (70-220) mg/dL (70-220) mg/dL (70-220) mg/dL (70-220) Test 04/11/18 05:29 04/11/18 07:38 White Blood 8.2 Count 10^3/ul (4.8-10 .8) Red Blood 4.37 Count 10^6/ul (4.20-5 .40) Hemoglobin 13.1 g/dl (12.0-16.0 ) Hematocrit 39.9 % (37.0-47.0) Mean 91.3 Corpuscular fl (82.0-101.0) Volume Mean 30.0 Corpuscular pg (29.0-33.0) Hemoglobin Mean 32.8 Corpuscular g/dl (32.0-37.0 Hemoglobin Conc ) ent Red Cell 12.6 Distribution % (11.5-14.5) Width Platelet Count 210 10^3/UL (140-41 5) Mean Platelet 11.6 Volume fl (7.4-10.4) Immature 0.400 Granulocytes % % (0.001-0.429) Neutrophils % 56.7 % (39.0-77.0) Lymphocytes % 30.3 % (15.0-51.0) Monocytes % 10.4 % (0.0-11.0) Eosinophils % 1.8 % (0.0-7.0) Basophils % 0.4 % (0.0-2.0) Nucleated Red 0.0 Blood Cells % /100WBC (0.0-0. 0) Immature 0.030 Granulocytes # 10^3/ul (0.0-0. 031) Neutrophils # 4.7 10^3/ul (1.6-7. 5) Lymphocytes # 2.5 10^3/ul (0.8-2. 9) Monocytes # 0.9 10^3/ul (0.3-0. 9) Eosinophils # 0.2 10^3/ul (0.0-0. 5) Basophils # 0.0 10^3/ul (0.0-0. 1) Nucleated Red 0.0 Blood Cells # 10^3/ul (0.0-0. 0) Sodium Level 138 mmol/L (135-144 ) Potassium 4.7 Level mmol/L (3.5-5.1 ) Chloride Level 99 mmol/L (97-110) Carbon Dioxide 26 Level mmol/L (21-31) Anion Gap 13 (5-13) Blood Urea 35 mg/dl (7-20) Nitrogen Creatinine 1.30 mg/dl (0.44-1.0 0) Est Glomerular mL/min (>60) Filtrat Rate mL/min Glucose Level 153 mg/dl (70-220) Calcium Level 10.0 mg/dl (8.4-10.2 ) Phosphorus 5.8 Level mg/dl (2.5-4.9) Magnesium 2.2 Level mg/dl (1.7-2.5) Bedside 151 Glucose mg/dL (70-220) GOLDEN RAHMAN V. BUILDING SERVICES SUPERVISOR Apr 11, 2018 11:20
[2018-04-11] MEDS ORDERED: SOD CHLORIDE 0.9% 500 ML IV ONE ×2 (12:00→14:00)
--- NOTE | 2018-04-11 12:16 | QN ---
Documentation Comment BMP just resulted with creatinine 1.30. Likely from hemodynamic secondary to too tight control of blood pressure. At this time, we will give her IV bolus and will repeat levels, if high, would hold off to discharge and will monitor renal function for another day with possible discontinuation of losartan and addition of another antihypertensive. GOLDEN RAHMAN NP Apr 11, 2018 12:16
[2018-04-11] MEDS ORDERED: CALCIUM ACETATE 667 MG CAP PO ONE (14:00)
--- NOTE | 2018-04-11 14:09 | PN ---
Date/Time of Note Date/Time of Note DATE: 04/11/18 TIME: 13:55 Assessment/Plan VTE Prophylaxis Risk score (from Ns)>0 risk: 4 SCD applied (from Ns): Yes Pharmacological prophylaxis: NA/contraindicated Pharm contraindication: low risk/ambulating Lines/Catheters [facility] Saline Lock Assessment/Plan Hospital Course SUBJECTIVE: No acute distress. OBJECTIVE: Vital signs-see below PHYSICAL EXAM: Constitutional: Well-developed, adequately built, lying in bed comfortably. Psych: nl mood/affect, no complaints Head: atraumatic, normocephalic Eyes: nl conjunctiva, nl sclera ENMT: mucosa pink and moist, nl external ears & nose Neck: non-tender, supple Respiratory: clear to auscultation, normal air movement Cardiovascular: nl pulses, regular rate and rhythm Gastrointestinal: non-tender, soft, bowel sounds active in all 4 quadrants. Musculoskeletal/extremities: nl extremities to inspection, motor strength equal bilaterally, no focal deficit. Normal pulses,no cyanosis, no edema. Neurological: Alert oriented 3,nl speech, nl strength Skin: nl turgor ASSESSMENT/PLAN: 72-year-old female with a history of hypertension, admitted for dizziness and SBP above 200s. 1. Acute kidney injury, likely hemodynamic/ARB-induced. -Discontinue losartan. -Obtain urine studies and renal ultrasound. -Give IV bolus. -Repeat renal function in a.m. 2. Uncontrolled hypertension. -Currently blood pressure with borderline low, likely too tight control. Discontinue clonidine. -Start Norvasc in AM 2. Type 2 diabetes. -A1c 8.4. Stable glycemic trends. Hold metformin for now and will treat with insulin in-house. 3. Hypercholesterolemia. - on statin. 4. Obesity. -Weight reduction advised. 5. Dizziness likely secondary to hypertensive episodes. -Carotid ultrasound, CT negative for acute events. Cardiac enzymes and EKG negative for ACS. -Pending 2D echocardiogram. 6.Mild Hyperphosphatemias,likely w/KODI -Cont.fluids -repeat level in am DVT prophylaxis: SCDs PUD prophylaxis: Not indicated CODE STATUS: Full code Diet: Carbohydrate controlled/low-cholesterol low-fat diet. Disposition: Plan was to discharge patient, however noted that patient with worsening renal function. Recommend keeping patient in-house for another night to monitor renal function. Patient was seen in collaboration with Dr. Coppola. Result Diagram: 04/11/18 0529 04/11/18 1245 Results 24hrs Laboratory Tests Test 04/10/18 17:17 04/10/18 20:09 04/11/18 01:59 04/11/18 05:29 Bedside Glucose 167 140 167 White Blood Count 8.2 Red Blood Count 4.37 Hemoglobin 13.1 Hematocrit 39.9 Mean Corpuscular Volume 91.3 Mean Corpuscular 30.0 Hemoglobin Mean Corpuscular 32.8 Hemoglobin Concent Red Cell Distribution 12.6 Width Platelet Count 210 Mean Platelet Volume 11.6 H Immature Granulocytes % 0.400 Neutrophils % 56.7 Lymphocytes % 30.3 Monocytes % 10.4 Eosinophils % 1.8 Basophils % 0.4 Nucleated Red Blood 0.0 Cells % Immature Granulocytes # 0.030 Neutrophils # 4.7 Lymphocytes # 2.5 Monocytes # 0.9 Eosinophils # 0.2 Basophils # 0.0 Nucleated Red Blood 0.0 Cells # Sodium Level 138 Potassium Level 4.7 Chloride Level 99 Carbon Dioxide Level 26 Anion Gap 13 Blood Urea Nitrogen 35 #H Creatinine 1.30 H Est Glomerular Filtrat Rate mL/min Glucose Level 153 Calcium Level 10.0 Phosphorus Level 5.8 H Magnesium Level 2.2 Test 04/11/18 07:38 04/11/18 11:42 04/11/18 12:45 Bedside Glucose 151 224 H Blood Urea Nitrogen 38 H Creatinine 1.66 H Exam/Review of Systems Vital Signs Vitals Vital Signs Date Temp Pulse Resp B/P (MAP) Pulse Ox O2 O2 Flow FiO2 Time Delivery Rate 04/11/18 70 12:50 04/11/18 97.8 18 109/56 96 Room Air 11:35 (73) Intake and Output 04/10/18 04/10/18 04/11/18 1515:00 23:00 07:00 IntakeIntake Total 1000 ml 250 ml BalanceBalance 1000 ml 250 ml Medications Medications Current Medications Diagnostic Test (Pha) (Accu-Chek) 1 ea 02 XX Last administered on 04/11/18at 01:59; Admin Dose 1 EA; Start 04/10/18 at 02:00 Insulin Aspart (Novolog Insulin Pen) NOVOLOG *MILD* ALGORITHM WITH MEALS BEDTIME SC Last administered on 04/11/18at 12:02; Admin Dose 3 UNIT; Start 04/10/18 at 08:00 Acetaminophen/ Hydrocodone Bitart ([place] (5/325)) 1 tab Q4H PRN PO MODERATE PAIN LEVEL 4-6; Start 04/09/18 at 23:30 Acetaminophen/ Hydrocodone Bitart ([place] (5/325)) 2 tab Q4H PRN PO PAIN LEVEL 7-10; Start 04/09/18 at 23:30 Acetaminophen (Tylenol Tab) 650 mg Q6H PRN PO MILD PAIN(1-3)OR ELEVATED TEMP Last administered on 04/10/18at 22:17; Admin Dose 650 MG; Start 04/09/18 at 23:30 Miscellaneous Information 1 ea NOTE XX ; Start 04/09/18 at 23:45 Glucose (Glutose) 15 gm Q15M PRN PO DECREASED GLUCOSE; Start 04/09/18 at 23:45 Glucose (Glutose) 22.5 gm Q15M PRN PO DECREASED GLUCOSE; Start 04/09/18 at 23:45 Dextrose (D50w Syringe) 25 ml Q15M PRN IV DECREASED GLUCOSE; Start 04/09/18 at 23:45 Dextrose (D50w Syringe) 50 ml Q15M PRN IV DECREASED GLUCOSE; Start 04/09/18 at 23:45 Glucagon (Glucagen) 1 mg Q15M PRN IM DECREASED GLUCOSE; Start 04/09/18 at 23:45 Glucose (Glutose) 15 gm Q15M PRN BUCCAL DECREASED GLUCOSE; Start 04/09/18 at 23:45 Metformin HCl (Glucophage) 500 mg BID WITH MEALS PO Last administered on 04/10/18at 08:06; Admin Dose 500 MG; Start 04/10/18 at 08:00; Status Hold Losartan Potassium (Cozaar) 100 mg DAILY PO Last administered on 04/11/18at 08:15; Admin Dose 100 MG; Start 04/10/18 at 09:00 IV Flush (NS 3 ml) 3 ml PER PROTOCOL IV ; Start 04/10/18 at 00:30 Ondansetron HCl (Zofran Inj) 4 mg Q6H PRN IV NAUSEA AND/OR VOMITING Last administered on 04/10/18at 22:16; Admin Dose 4 MG; Start 04/10/18 at 00:30 Famotidine (Pepcid) 20 mg Q12 PO Last administered on 04/11/18at 08:16; Admin Dose 20 MG; Start 04/10/18 at 09:00 Albuterol/ Ipratropium (Duoneb) 3 ml Q2H RESP THERAPY PRN HHN SHORTNESS OF BREATH; Start 04/10/18 at 00:30 Atorvastatin Calcium (Lipitor) 10 mg HS PO Last administered on 04/10/18at 20:10; Admin Dose 10 MG; Start 04/10/18 at 21:00 Insulin Glargine (Lantus) 14 units DAILY@2000 SC Last administered on 04/10/18at 20:21; Admin Dose 14 UNITS; Start 04/10/18 at 20:00 Fish Oil (Fish Oil) 1,000 mg BID PO Last administered on 04/11/18 10:13; Admin Dose 1,000 MG; Start 04/11/18 at 09:30 GOLDEN RAHMAN NP Apr 11, 2018 14:08
[2018-04-11] MEDS: SOD CHLORIDE 0.9% 1,000 ML IV SCH (14:17)
--- NOTE | 2018-04-11 16:04 | RADRPT ---
Echocardiogram Report Patient Name: MORENA HARRIS Gender: Female Date: 1945 Study Date: 11-Apr-2018 Aircraft Designer: Thomas Lang [facility] Location: 62 Ref. Physician: GALDINO VAZQUEZ Quality: Technically Difficult Study Procedures: Transthoracic echocardiogram with complete 2D, M-Mode, and doppler examination. Indications: Shortness of breath. 2D/M Mode Doppler Measurement Value Normal Ranges Measurement Value Normal Ranges LVIDd 2D 4.5 3.5 - 5.6 cm AV Peak Lamine 1.5 m/sec LVIDs 2D 2.3 2.1 - 4.1 cm AV Peak PG 10.0 mmHg LVPWd 2D 1.5 0.6 - 1.1 cm LVOT Peak [place] 1.1 m/sec IVSd 2D 1.4 0.6 - 1.1 cm LVOT Peak PG 4.0 mmHg AoR Diam 2D 3.0 2.0 - 3.7 cm MV E Peak L[place] 0.5 m/sec LA/Ao 2D 1 0 - 1 MV A Peak L[place] 0.8 m/sec LA Dimen 2D 3.3 2.3 - 4.0 cm MV E/A 0.7 MV Decel Time 246 msec Lat E` Lamine 0.1 m/sec Lateral E/E` 7.4 MV E/A 0.7 TR Peak Lamine 2.4 m/sec TR Peak PG 23.0 mmHg RVSP 26.0 mmHg RA Pressure 3.0 Findings Left Ventricle: Normal left ventricular systolic function. Normal left ventricular cavity size. Moderate concentric left ventricular hypertrophy. Ejection fraction is visually estimated at 55 %. Tissue Doppler/Mitral Doppler indices are consistent with impaired relaxation (Stage I diastolic dysfunction). Right Ventricle: Normal right ventricular size. Normal right ventricular systolic function. Left Atrium: The left atrium is normal in size. Right Atrium: The right atrium is normal in size. Mitral Valve: Normal appearance of the mitral valve. Mild mitral annular calcification. Trace mitral regurgitation. Aortic Valve: No significant aortic stenosis or insufficiency. Aortic cusps appear mildly calcified. Tricuspid Valve: Normal appearance of the tricuspid valve. Estimated peak PA systolic pressure 26 mmHg. There is trace tricuspid regurgitation. Pulmonic Valve: Normal pulmonic valve appearance. Pericardium: Normal pericardium with no significant pericardial effusion. Aorta: Normal aortic root. IVC: Normal size and normal respiratory collapse consistent with normal right atrial pressure. Conclusions Normal left ventricular systolic function. Normal left ventricular cavity size. Moderate concentric left ventricular hypertrophy. Ejection fraction is visually estimated at 55 %. Tissue Doppler/Mitral Doppler indices are consistent with impaired relaxation (Stage I diastolic dysfunction). Normal right ventricular size. Normal right ventricular systolic function. The left atrium is normal in size. The right atrium is normal in size. No significant valvular stenosis or regurgitation seen. Normal pericardium with no significant pericardial effusion. Electronically Signed By: Trevon Fenton 11-Apr-2018 16:03:06 -0800 Patient Name: MORENA HARRIS Study Date: 11-Apr-2018 [id number]
[2018-04-11] MEDS: ATORVASTATIN 10 MG TAB PO SCH (20:05)
[2018-04-11] MEDS: INSULIN GLARGINE [LANTus] (100 UNITS/ML) SYG SC SCH (20:24)
[2018-04-12] VITALS (8 sets, daily range): BP systolic 107–142; BP diastolic 53–65; PULSE 59–69; RESP 18–65
[2018-04-12] MEDS: ACCU-CHEK XX SCH (02:20)
[2018-04-12] MEDS: SOD CHLORIDE 0.9% 1,000 ML IV SCH ×2 (02:20→14:24)
[2018-04-12] MEDS: INSULIN ASPART [NOVOLOG] 3 ML PEN SC SCH ×2 (08:00→11:45)
[2018-04-12] MEDS: FAMOTIDINE 20 MG TAB PO SCH (08:08)
[2018-04-12] MEDS: FISH OIL 1,000 MG CAP PO SCH (08:08)
[2018-04-12] MEDS ORDERED: AMLODIPINE 5 MG TAB NGT SCH (09:00)
[2018-04-12] MEDS ORDERED: AMLODIPINE 5 MG TAB PO SCH (09:00)
[2018-04-12] MEDS ORDERED: AMLO-145 PO (09:54)
--- NOTE | 2018-04-12 10:21 | DS ---
Date/Time of Note Date/Time of Note DATE: 04/12/18 TIME: 10:15 Discharge Summary Admission/Discharge Info Admit Date/Time Apr 11, 2018 at 13:55 Discharge Date/Time Discharge Diagnosis 1. Poorly controlled hypertension. Now stable. 2. Type 2 diabetes. 3. Hypercholesterolemia. 4. Obesity. 5. Dizziness likely secondary to hypertensive episodes. Resolved. 6. 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 7. Acute kidney injury likely secondary to ARB. Resolved 8. Diastolic dysfunction Procedures 04/11/2018. Noncontrast CT head. IMPRESSION: No significant change. 1. No loss of bauman-white differentiation to suggest acute territorial infarction. Consider CTA of the head/neck or noncontrast MRI of the brain as clinically warranted. 2. No acute intracranial hemorrhage. 3. Mild to moderate chronic microvascular ischemic changes. 4. Partially empty sella turcica. Further findings as detailed above. 04/10/2018. Carotid duplex. IMPRESSION: 1. Less than 50% stenosis bilaterally in the internal carotid arteries. 2. Normal antegrade flow in the vertebral arteries bilaterally. 04/11/2018. 2D echocardiogram. Conclusions Normal left ventricular systolic function. Normal left ventricular cavity size. Moderate concentric left ventricular hypertrophy. Ejection fraction is visually estimated at 55 %. Tissue Doppler/Mitral Doppler indices are consistent with impaired relaxation (Stage I diastolic dysfunction). Normal right ventricular size. Normal right ventricular systolic function. The left atrium is normal in size. The right atrium is normal in size. No significant valvular stenosis or regurgitation seen. Normal pericardium with no significant pericardial effusion. Electronically Signed By: Trevon Fenton 11-Apr-2018 16:03:06 -0800 Patient Name: MORENA HARRIS Study Date: 11-Apr-2018 [id number] 04/11/2018. CT head IMPRESSION: No significant change. 1. No loss of bauman-white differentiation to suggest acute territorial infarction. Consider CTA of the head/neck or noncontrast MRI of the brain as clinically warranted. 2. No acute intracranial hemorrhage. 3. Mild to moderate chronic microvascular ischemic changes. 4. Partially empty sella turcica. Further findings as detailed above. RPTAT: PP .Edy Fodera, MD, MD Date Time Electronically viewed and signed by .Edy Cadena MD, on 04/11/2018 10:04 .F/ CC: GOLDEN RAHMAN NP [id number] 04/11/2007. Renal ultrasound. IMPRESSION: 1. Unremarkable renal ultrasound. No evidence of renal calculi or obstructive uropathy Hospital Course 72-year-old female with a history of hypertension,on DIOVAN and CLONIDINE for BP management as outpt, admitted for dizziness ,and SBP above 200s. Blood pressure was managed initially with losartan and as needed clonidine. However, patient was noted with acute kidney injury secondary to losartan, as such she was then changed to amlodipine with blood pressure control. Kidney function stabilized. Hospital stay was noted for seeing lines with some vision changes for which she was ruled out for stroke. Most likely, patient may have diabetic/hypertensive retinopathy for which outpatient ophthalmology referral w as recommended. Patient did not have any further dizziness. The patient was also noted with hypercholesteremia for which statin was initiated with weight reduction advised. At this time, patient is feeling back to her baseline. Vital signs and labs rem ained stable. Patient is medically stable for discharge with outpatient primary care and ophthalmology follow-up. Approximately 60 m spent on coordinating the discharge on this patient. Patient was seen in collaboration with Dr. Coppola. Home Meds Active Scripts Amlodipine Besylate* (Amlodipine Besylate*) 5 Mg Tablet, 5 MG PO DAILY, #30 TAB Prov:GOLDEN RAHMAN V. [employer] 04/12/18 Aspirin* (Aspirin* EC) 81 Mg Tablet., 81 MG PO DAILY, #30 TAB Prov:JHONATHAN RAHMANA Antoni [employer] 04/11/18 Lafferty-3 Fatty Acids/Fish Oil (Fish Oil 1,000 mg Softgel) 1 Each Capsule, 1 EACH PO BID, #60 CAP Prov:GOLDEN RAHMAN V. [employer] 04/11/18 Atorvastatin (Atorvastatin) 10 Mg Tablet, 10 MG PO HS, #30 TAB Prov:RAHMANJHONATHANA V. [employer] 04/11/18 Reported Medications Metformin* (Glucophage*) 500 Mg Tab, 500 MG PO BID WITH MEALS, #90 TAB 10/13/17 Discontinued Reported Medications Valsartan* (Diovan*) 320 Mg Tablet, 320 MG PO DAILY, TAB 10/13/17 Discontinued Scripts Clonidine Hcl* (Clonidine Hcl*) 0.1 Mg Tab, 0.1 MG PO BID, #2 TAB Prov:AIME MATHIAS DO 04/08/18 Ondansetron (Ondansetron Odt) 4 Mg Tab.rapdis, 4 MG PO Q6H PRN for NAUSEA AND/OR VOMITING, #10 TAB Prov:OLIVER PAEZ MD 10/13/17 Meclizine Hcl* (Antivert*) 12.5 Mg Tab, 12.5 MG PO Q6H PRN for DIZZINESS, #20 TAB Prov:OLIVER PAEZ MD 10/13/17 Follow-up Plan 1. Follow-up with primary care physician in 1 week-Repeat BUN/Creatinine in1 week Primary Care Provider Not On Staff Doctor Pending Labs Laboratory Tests Test 04/11/18 11:42 04/11/18 12:45 04/11/18 15:00 04/11/18 16:58 Bedside 224 120 Glucose mg/dL (70-220) mg/dL (70-220) Blood Urea 38 Nitrogen mg/dl (7-20) Creatinine 1.66 mg/dl (0.44-1. 00) Urine Color STRAW (YELLOW) Urine Clarity CLEAR (CLEAR) Urine pH 5.0 (5.0-9.0) Urine Specific 1.010 (1.003-1 [place] .030) Urine Ketones NEGATIVE mg/dL (NEGATIV E) Urine Nitrite NEGATIVE mg/dL (NEGATIV E) Urine NEGATIVE Bilirubin mg/dL (NEGATIV E) Urine NEGATIVE Urobilinogen mg/dL (NEGATIV E) Urine Leukocyte NEGATIVE Jessica/u Esterase l Urine NEGATIVE Hemoglobin mg/dL (NEGATIV E) Urine 370 Osmolality mOsm/kg (250-1 200) Urine Random 73.16 Creatinine mg/dl (20-320) Urine Glucose NEGATIVE mg/dL (NEGATIV E) Urine Total 9.0 Protein mg/dl (0.0-11. 9) Test 04/11/18 20:07 04/12/18 02:18 04/12/18 05:02 04/12/18 07:41 Bedside 190 137 121 Glucose mg/dL (70-220) mg/dL (70-220) mg/dL (70-220) Sodium Level 140 mmol/L (135-14 4) Potassium 4.6 Level mmol/L (3.5-5. 1) Chloride Level 110 mmol/L (97-110 ) Carbon Dioxide 22 Level mmol/L (21-31) Anion Gap 8 (5-13) Blood Urea 28 Nitrogen mg/dl (7-20) Creatinine 1.01 mg/dl (0.44-1. 00) Est Glomerular mL/min (>60) Filtrat Rate mL/min Glucose Level 140 mg/dl (70-220) Calcium Level 9.3 mg/dl (8.4-10. 2) GOLDEN RAHMAN NP Apr 12, 2018 10:21
[2018-04-20] MEDS ORDERED: INSULIN GLARGINE [LANTus] (100 UNITS/ML) SYG SC SCH (20:00)
== END 2018-04-12 14:20 | disposition home or self-care (01) | DRG 305 ==
LOC: E/R 15:58 → 6WM 21:03 → INTOOBSV 21:03 → OBSVTOIN 04-11 13:55
PROVIDERS: ADMIT Internal Medicine; ATTEND Internal Medicine
DX: I16.0 Hypertensive urgency (principal); I16.1 Hypertensive emergency; N17.9 Acute kidney failure, unspecified; I10 Essential (primary) hypertension; K21.9 Gastro-esophageal reflux disease without esophagitis; K29.60 Other gastritis without bleeding; E78.5 Hyperlipidemia, unspecified; E78.00 Pure hypercholesterolemia, unspecified; E66.9 Obesity, unspecified; Z68.32 Body mass index [BMI] 32.0-32.9, adult; E83.39 Other disorders of phosphorus metabolism; E11.319 Type 2 diabetes mellitus with unspecified diabetic retinopathy without macular edema
CPT/HCPCS: 36415; 70450; 76775; 80048; 80053; 80061; 81003; 82565; 82962; 83036; 83735; 83935; 84100; 84155; 84443; 84484; 84520; 85025; 93005; 93306; 93880; 97161; 99217; G0378; J1815; J2405; J7030; J7040